=== PATIENT | male | born 1970 | race Caucasian/White ===

== ENCOUNTER 2017-10-19 11:47 | Inpatient (IN) | payer OTHER ==
[~2017-10-19] VITALS: Ht 175.3 cm; Wt 77.1 kg
--- NOTE | ~2017-10-19 | EKG ---
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1970 Requested By: Karen Alvares Order Number: [id number] MD: Chauncey Santo Measurements Intervals [place] Rate: 115 P: NE: QRS: 30 QRSD: 86 T: 140 QT: 287 QTc: 397 Interpretive Statements Atrial fibrillation Occasional ventricular premature complexes Repol abnrm, severe global ischemia (LM/MVD) No previous ECG available for comparison Electronically Signed On 10-20-2017 8:19:28 POST OFFICE CLERK by Chauncey Santo [email or web address] <ELECTRONICALLY SIGNED> By: Chauncey Santo MD, [facility] 10/20/17 0819 1158 1158 Chauncey Santo MD, FACC /EPI
--- NOTE | ~2017-10-19 | CATHLAB ---
[facility] [place] [address] INVASIVE PROCEDURE REPORT Name: INDERJIT CONRAD Room #: 214-P ADM IN .R.#: [id number] Admission: 10/19/17 Attend Phys: Paramjit Obrien MD Discharge: Date of : 68 Date of Service: 10/19/17 1617 Report #: [id number] THIS REPORT FOR: //name// APPROVED REPORT Patient Details Patient Status: ED Room #: The patient is a 46 year-old male Event Personnel Lambert Rios Practice Billing Associate, Randolph, Venus CINTRON RN, Maite Villagran Sandifer, David Monitor, Bernabe South RN Procedures Performed Left Heart Cath w/or w/o Coronaries [id number] [facility] JOE Revasc AMI Total/Sub Single CIRC C9606 AMIREVSING Indication Non-STEMI , Atrial fibrillation, Dyspnea, Unstable angina , Chest pain, The patient presented with unstable angina to the ER, initial troponin was positive. 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 Risk Factors Family History, Hypercholesterolemia, Coronary Artery DiseaseHypertension Previous Procedures/Diagnoses Previous PCI Procedure Narrative The patient was brought urgently to the Cardiac Catheterization Laboratory and was prepped and draped in a sterile manner. The Left Groin^ was infiltrated with 1% Lidocaine subcutaneous anesthesia. A PINNACLE 4FR Sheath #[id number] sheath was inserted into the LFA^. Coronary angiography was performed using coronary diagnostic catheters. The right coronary system was accessed and visualized with a JR4 catheter. The left coronary system was accessed and visualized with a JL5 catheter. The left ventricle was accessed and visualized with a PIGTAIL catheter. Left ventricular/Aortic Valve gradient assessed via catheter pullback. Left ventriculogram was performed in 30 degree projection. Hemostasis was obtained with manual pressure following sheath removal without any complications. The patient tolerated the procedure well and there were no complications [address] [address] INVASIVE PROCEDURE REPORT Name: INDERJIT CONRAD Room #: 214-P [facility].#: [id number] Admission: 10/19/17 Attend Phys: Paramjit Obrien MD Discharge: Date of : 68 Date of Service: 10/19/17 1617 Report #: [id number] associated with the procedure. There was no hematoma. Intraoperative Conscious Sedation Sedation start time: 14.54 Case end Time: 15.36 Fentanyl mcg Versed mg Fluoro Time: 8.31 minutes Dose: 1334 mGy Contrast Type and Amount: Omnipaque 2,255 ml Coronary Angiography The patient's coronary anatomy is right dominant. Diagnostic Cath Left Main Patent vessel, with no flow-limiting lesions. LAD The mid-segment is mildly calcified with mild diffuse disease, 30%. The initial injections revealed a severe, focal occlusion in the apical LAD, but later injections revealed only mild disease within this region-- suggestive for coronary vasospasm. Diagonal 1 There is a stent in the proximal segment, patent with minimal restenosis. Circumflex The initial injections revealed a severe, focal occlusion in the distal LCx artery, but later injections revealed only mild disease within this region-- suggestive for coronary vasospasm. OM1 There is a total occlusion of the proximal segment. Right Coronary Dominant vessel, with mildly calcified region in the mid segment with mild disease- 30%. There is also a mild to moderate area of stenosis in the distal segment, 30-40%. R PDA patent vessel, with no flow-limiting lesions. RPLV patent vessel, with no flow-limiting lesions. Ramus Patent vessel, supplies 2 branches in the proximal segment, with no flow-limiting lesions. Left Ventriculography The left ventricle is normal in size with decreased contractility. The left ventricular ejection fraction is estimated to be 45-50%. Left ventricular wall motion abnormalities are present. Mild hypokinesis of the mid inferior segment. Hemodynamics The aortic pressure is 154/104 mmHg with a mean of 108 mmHg. The left ventricular pressure is 155/16 mmHg with a mean of mmHg. The left ventricular end diastolic pressure is 18 mmHg. [facility] [address] [place] [address] INVASIVE PROCEDURE REPORT Name: INDERJIT CONRAD Room #: 214-P [facility] IN M.R.#: [id number] Admission: 10/19/17 Attend Phys: Paramjit Obrien MD Discharge: Date of : 68 Date of Service: 10/19/17 1617 Report #: [id number] PCI Technique Lesion Anticoagulation was achieved with Angiomax. Patient was preloaded with Plavix. Percutaneous coronary intervention was performed on the first obtuse marginal branch segment. The lesion stenosis prior to intervention was 100% with NAILA 0 flow. A VISTA 6FR JL5 #[id number] Guide Catheter was used to engage the ostium. A Luge Wire .014 x 182CM #[id number] Interventional Guidewire was used to cross the lesion. BALLOON DILATION A Balloon catheter Euphora RX 2.5 x 12 #[id number] was inserted and inflated up to 4.00atm for 14seconds. STENT DEPLOYMENT A drug-eluting stent RESOLUTE RX 2.5 X 18 #[id number] was inserted and inflated up to 9.00atm for 18seconds. POST STENT DEPLOYMENT BALLOON DILATION A Balloon catheter TREK NC RX 2.5 X 12 #[id number] was inserted and inflated up to 16.00atm for 23seconds. Additional Inflation: 16.00atm for 15seconds. Final angiography reveals 0 % stenosis with NAILA 3 flow. Conclusion 1. Successful insertion of a drug-eluting stent into the total occlusion in the proximal first obtuse marginal artery. 2. Patent stent in the first diagonal artery. 3. Mild segmental LV dysfunction, EF 45-50%. 4. A component of coronary vasospasm, recommend nitrates and calcium channel blockers. <ELECTRONICALLY SIGNED> By: Lambert Rios MD 10/19/171616 16 16 Lambert Rios MD /INF
--- NOTE | ~2017-10-19 | EKG ---
[address] [employer] [place] [address] ELECTROCARDIOGRAM REPORT Name: INDERJIT CONRAD Room #: 214-P ADM IN M.R.#: [id number] Admission: 10/19/17 Attend Phys: Paramjit Obrien MD Discharge: Date of : 68 Report #: [id number] THIS REPORT FOR: //name// 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
--- NOTE | ~2017-10-19 | 2DMMODE ---
[facility] [address] [place] [address] 2 D/M-MODE ECHOCARDIOGRAM Name: INDERJIT CONRAD Room #: 214-P ADM IN .R.#: [id number] Admission: 10/19/17 Attend Phys: Paramjit Obrien MD Discharge: Date of : 68 Date of Service: 10/19/17 1547 Report #: [id number] THIS REPORT FOR: //name// APPROVED REPORT Study performed: 10/19/2017 13:47:39 EXAM: Comprehensive 2D, Doppler, and color-flow Echocardiogram Patient Location: ER Room #: 5 Status: routine BSA: 1.93 HR: 72 bpm BP: 126/81 mmHg Rhythm: NSR Other Information Study Quality: Adequate Indications Atrial Fibrillation CAD Hypertension/HDD Hx: NSTEMI 2D Dimensions RVDd: 42.63 mm LVEF(%): 61.97 (>50%) IVSd: 11.03 (7-11mm) LVOT Diam: 20.26 (18-24mm) LVDd: 50.41 mm PWd: 9.84 (7-11mm) Ascending Ao: 34.88 (22-36mm) LVDs: 33.52 (25-40mm) Aortic Root: 32.05 mm Camacho's LVEF: 61.97 % Volumes Left Atrial Volume (Systole) Single Plane 4CH: 39.17 mL Single Plane 2CH: 48.28 mL LA ESV Index: 25.00 mL/m2 Aortic Valve AoV Peak Jhon.: 1.34 m/s AO Peak Gr.: 7.16 mmHg LVOT Max P.03 mmHg LVOT Max V: 1.23 m/s STEVE Vmax: 2.96 cm2 [facility] [address] [place] [address] 2 D/M-MODE ECHOCARDIOGRAM Name: INDERJIT CONRAD Room #: 214-P [facility] IN .R.#: [id number] Admission: 10/19/17 Attend Phys: Paramjit Obrien MD Discharge: Date of : 68 Date of Service: 10/19/17 1547 Report #: [id number] Mitral Valve E/A Ratio: 0.8 MV Decel. Time: 204.61 ms MV E Max Jhon.: 0.72 m/s MV A Jhon.: 0.88 m/s MV PHT: 59.34 ms IVRT: 110.73 ms Pulmonary Valve PV Peak Jhon.: 0.95 m/s PV Peak Gr.: 3.65 mmHg Pulmonary Vein P Vein S: 0.60 m/s P Vein A: 0.24 m/s P Vein D: 0.38 m/s P Vein A Dur.: 133.8 msec P Vein S/D Ratio: 1.58 Tricuspid Valve RAP Estimate: 5.00 mmHg Left Ventricle The left ventricle is normal size. There is normal left ventricular wall thickness. The left ventricular systolic function is normal. LVEF is 55-60%. Grade I - abnormal relaxation pattern. Right Ventricle The right ventricle is normal size. The right ventricular systolic function is normal. Atria The left atrium size is normal. The right atrium size is normal. Aortic Valve The aortic valve is normal in structure. No aortic regurgitation is present. There is no aortic valvular stenosis. Mitral Valve The mitral valve is normal in structure. Trace mitral regurgitation. No evidence of mitral valve stenosis. Tricuspid Valve The tricuspid valve is normal in structure. Trace tricuspid regurgitation. Unable to assess PA pressure. Pulmonic Valve Pulmonic valve is not well visualized. There is no pulmonic valvular [place] [id number] 2 D/M-MODE ECHOCARDIOGRAM Name: INDERJIT CONRAD Room #: 214-P [facility] IN .R.#: [id number] Admission: 10/19/17 Attend Phys: Paramjit Obrien MD Discharge: Date of : 68 Date of Service: 10/19/17 1547 Report #: [id number] regurgitation. Great Vessels The aortic root is normal in size. The ascending aorta is normal in size. IVC is normal in size and collapses >50% with inspiration. Pericardium There is no pericardial effusion. <Conclusion> The left ventricle is normal size. There is normal left ventricular wall thickness. The left ventricular systolic function is normal. Grade I - abnormal relaxation pattern. The right ventricle is normal size. The left atrium size is normal. There is no aortic valvular stenosis. Trace mitral regurgitation. Trace tricuspid regurgitation. <ELECTRONICALLY SIGNED> By: Lambert Rios MD 10/19/17 1547 1547 1547 Lambert Rios MD /INF
--- NOTE | ~2017-10-19 | H ---
[facility] [place] [address] HISTORY AND PHYSICAL Name: INDERJIT CONRAD Room #: 214-P [facility] IN M.R.#: [id number] Admission: 10/19/17 Attend Phys: Paramjit Obrien MD Discharge: 10/20/17 Date of : 68 Report #: [id number] THIS REPORT FOR: //name// CC: PK Obrien DATE OF SERVICE: 10/19/2017 HISTORY OF PRESENT ILLNESS: A 46-year-old male with past medical history significant for coronary artery disease, status post stents, LAD in June 2017, history of similar problems prior, known hypercholesterolemia, significant family history presented with complaints of chest pain. The patient was in his usual state of health status post recent travel from [place] on flight for about 6-9 hours, presented recently about a week ago. The patient was in his usual state of health, sleeping when he woke up with chest pain around 11:00 a.m. with some diaphoresis and nausea, status post ER visit, found to be in AFib with RVR. The patient's symptoms were not relieved with nitro x 3 at home done over 45-minute period. The patient had significant ST depression diffusely, more significant in the lateral and inferior leads. Course complicated by atrial fibrillation with RVR with improvement with Cardizem 20 mg IV. Chest pain resolved with nitro x 3. The patient spontaneously converted to sinus rhythm after nitro and most of the patient's symptoms resolved. Cardiology was consulted from the Emergency Room evaluated at bedside. The patient denies any complaints of chest pain, nausea, vomiting, abdominal pain. The patient denies any recent URI-like symptoms except 2 weeks ago, most of the symptoms resolved for now. The patient denies any altered sensorium or focal neurological deficits. REVIEW OF SYSTEMS: Rest of review of systems negative other than mentioned in HPI. PAST MEDICAL HISTORY: As mentioned above. PAST SURGICAL HISTORY: Noncontributory. FAMILY HISTORY: Significant for coronary artery disease in mother, brothers and father. SOCIAL HISTORY: Nonsmoker. ALLERGIES: No known drug allergies. CURRENT MEDICATIONS: Lipitor 80 mg, Plavix 75 mg, Lopressor 50 b.i.d., aspirin 81 mg. PHYSICAL EXAMINATION: [facility] [address] [place] [address] HISTORY AND PHYSICAL Name: INDERJIT CONRAD Room #: 214-P [facility] IN .R.#: [id number] Admission: 10/19/17 Attend Phys: Paramjit Obrien MD Discharge: 10/20/17 Date of : 68 Report #: [id number] GENERAL: Alert, oriented. CARDIOVASCULAR: No complaints of chest pain. S1, S2. No murmur. LUNGS: Clear air entry bilaterally. ABDOMEN: Nontender, bowel sounds positive. No hepatosplenomegaly. EXTREMITIES: No edema. Homans sign negative. NEUROLOGIC: Alert, oriented x 2 with no focal neurological deficits. No palpable lymphadenopathy noted. LABORATORY DATA: Reviewed. Chest x-ray negative. EKG reviewed on admission and follow up once converted to sinus rhythm with still persistent mild ST depressions about 1 mm in lateral leads. ASSESSMENT AND PLAN: A 46-year-old male with past medical history of coronary artery disease, hypercholesterolemia presented with complaints of chest pain, found to be in atrial fibrillation with rapid ventricular response with ST depressions in lateral leads with elevated troponin up to 0.94, non-ST elevation myocardial infarction. Non-ST elevation myocardial infarction. Nitro p.r.n., beta nathan, metoprolol 50 b.i.d., Lipitor 80 mg. Cardiology consult. Telemetry monitoring. Admit to CCU. Cardiology consult appreciated. Echo with no significant findings. Cardiology recommended heparin GTT ordered. Recommend PCI. Review of PCI results shows coronary spasm and multiple vessels with no significant stenosis. Recommend medical management. Continue home dose of metoprolol 50 b.i.d., Lipitor 80 mg, aspirin 81 mg, Plavix 75. Deep venous thrombosis prophylaxis not necessary as the patient is on heparin GTT. Gastrointestinal prophylaxis not necessary. <ELECTRONICALLY SIGNED> By: Paramjit Obrien MD 11/08/17 0834 0644 0855 Paramjit Obrien MD /nt
--- NOTE | ~2017-10-19 | EKG ---
[address] [place] [address] ELECTROCARDIOGRAM REPORT Name: INDERJIT CONRAD Room #: 214-P ADM IN M.R.#: [id number] Admission: 10/19/17 Attend Phys: Paramjit Obrien MD Discharge: Date of : 68 Report #: [id number] THIS REPORT FOR: //name// 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1970 Requested By: Lambert Rios Order Number: [id number] MD: Chauncey Santo Measurements Intervals [place] Rate: 98 P: 68 IN: 152 QRS: 15 QRSD: 94 T: 8 QT: 356 QTc: 455 Interpretive Statements Sinus rhythm RSR' in V1 or V2, probably normal variant Nonspecific ST and T wave abnormality No previous ECG available for comparison Electronically Signed On 10-20-2017 8:26:02 WIRE TINNER by Chauncey Santo [email or web address] <ELECTRONICALLY SIGNED> By: Chauncey Santo MD, [facility] 10/20/17 0826 25 25 Chauncey Santo MD, [facility] /EPI
[2017-10-19 11:52] VITALS: BP 139/97
[2017-10-19 12:13] LABS: BASOPHILS 0.5 % (0.0-2.0); EOSINOPHILS 19.3 % (0.0-3.0); HEMATOCRIT 36.4 % (42.0-52.0); HEMOGLOBIN 12.4 gm/dL (14.0-18.0); LYMPHOCYTES 18.8 % (24.0-44.0); MCH 32.5 pg (26.0-34.0); MCHC 34.1 g/dL (28.0-37.0); MCV 95.4 fL (80.0-100.0); MONOCYTES 5.6 % (1.0-8.0); PLATELET COUNT 256 thou/uL (150-400); POLYS 55.8 % (36.0-66.0); RBC 3.82 mil/uL (4.50-6.00); RDW 15.2 % (10.5-14.5); WBC 7.1 thou/uL (4.0-11.0)
[2017-10-19 12:22] LABS: CALCIUM 8.7 mg/dL (8.5-10.1); POTASSIUM 3.6 mmol/L (3.5-5.1)
[2017-10-19 12:31] LABS: ALBUMIN 3.9 g/dL (3.4-5.0); TOTAL BILIRUBIN 0.7 mg/dL (<0.1-1.0); TOTAL PROTEIN 7.1 g/dL (6.4-8.2)
[2017-10-19 12:32] LABS: TROPONIN-I 0.94 ng/mL (<0.06)
[2017-10-19 14:21] VITALS: BP 148/93
[2017-10-19 19:42] LABS: CHOLESTEROL 141 mg/dL (<200); HDL CHOLESTEROL 43 mg/dL (>40); LDL CHOLESTEROL 85 mg/dL (<100); SERUM ASSESSMENT Clear; TC:HDL 3.3 Ratio (Not establshd); TRIGLYCERIDE 65 mg/dL (<150); VLDL 13 mg/dL (<40)
[2017-10-19 19:50] VITALS: BP 143/79
[2017-10-19] MEDS ORDERED: LOPRESSOR50 PO (20:35)
[2017-10-19] MEDS ORDERED: LIPITOR80 MG PO (20:37)
[2017-10-19 22:00] VITALS: BP 129/83
[2017-10-19 22:15] VITALS: BP 121/83
[2017-10-20 00:30] VITALS: BP 119/80
[2017-10-20 00:32] LABS: HEMATOCRIT 33.6 % (42.0-52.0); HEMOGLOBIN 11.4 gm/dL (14.0-18.0); MCH 32.7 pg (26.0-34.0); RBC 3.5 mil/uL (4.50-6.00); RDW 15.1 % (10.5-14.5); WBC 6.7 thou/uL (4.0-11.0)
[2017-10-20 00:41] LABS: CALCIUM 7.9 mg/dL (8.5-10.1); CREATININE 0.9 mg/dL (0.7-1.3)
[2017-10-20 00:43] LABS: TROPONIN-I 7.45 ng/mL (<0.06)
[2017-10-20 03:00] VITALS: BP 138/77
[2017-10-20 07:30] VITALS: BP 135/86
[2017-10-20 09:29] LABS: TROPONIN-I 4.51 ng/mL (<0.06)
[2017-10-20] MEDS ORDERED: IMDUR 30 MG TAB30 M1 PO (15:25)
[2017-10-20] MEDS ORDERED: CARDIZEM CD 18180 M3 PO (15:25)
[2017-10-20] MEDS ORDERED: CLOPIDOGREL75 MG PO (15:25)
[2017-10-20] MEDS ORDERED: ASPIR 8181 MG PO (15:25)
[2017-10-20] MEDS ORDERED: LOPRESSOR50 PO (15:31)
[2017-10-20 15:37] VITALS: BP 147/104
[2017-10-20 15:53] VITALS: BP 147/104
[2017-10-20] MEDS ORDERED: CARDIZEM CD180 MG PO (15:57)
== END 2017-10-20 18:50 | disposition home or self-care (01) | DRG 247 ==
LOC: ER 11:47 → 2N 13:29 → EROBS 13:29 → 2N 14:36 → ENTRNSPT 10-20 18:23 → 2N 10-20 18:50
PROVIDERS: Hospitalist; Internal Medicine Cardiovascular Disease; Physician Assistant
PROC: 4A023N7 Measurement of Cardiac Sampling and Pressure, Left Heart, Percutaneous Approach (ICD-10-PCS; principal; 2017-10-19)
PROC: 027034Z Dilation of Coronary Artery, One Artery with Drug-eluting Intraluminal Device, Percutaneous Approach (ICD-10-PCS; 2017-10-19)
PROC: B2111ZZ Fluoroscopy of Multiple Coronary Arteries using Low Osmolar Contrast (ICD-10-PCS; 2017-10-19)
PROC: B2151ZZ Fluoroscopy of Left Heart using Low Osmolar Contrast (ICD-10-PCS; 2017-10-19)
DX: I21.4 Non-ST elevation (NSTEMI) myocardial infarction (principal); I10 Essential (primary) hypertension; K21.9 Gastro-esophageal reflux disease without esophagitis; E78.5 Hyperlipidemia, unspecified; I25.10 Atherosclerotic heart disease of native coronary artery without angina pectoris; E78.00 Pure hypercholesterolemia, unspecified; J45.909 Unspecified asthma, uncomplicated; Z95.5 Presence of coronary angioplasty implant and graft
CPT/HCPCS: 10081